=== PATIENT | female | born 1975 | race Two or more races ===

== ENCOUNTER 2023-07-26 11:11 | Emergency (ER) | payer OTHER ==
[~2023-07-26] VITALS: Ht 162.6 cm; Wt 61.2 kg
[2023-07-26] MEDS ORDERED: NORVASC5 MG PO (13:04)
[2023-07-26 14:27] LABS: PH,URINE 6.5 (5.0-8.0); URINE APPEARANCE Clear; URINE BILIRRUBIN Negative (NEGATIVE); URINE BLOOD Negative; URINE COLOR Yellow; URINE EPITHELIAL CELLS 2.6 uL (0.0-38.8); URINE GLUCOSE Negative (NEGATIVE); URINE LEUKOCYTE Trace; URINE NITRATE Negative; URINE PROTEIN Negative (NEGATIVE); URINE UROBILINOGEN 0.2 E.U./dl
[2023-07-26 14:38] LABS: HEMATOCRIT 41.9 % (36.0-45.00); HEMOGLOBIN 14.5 g/dL (12.0-15.00); MEAN CELL VOLUME 92.6 fL (80.00-100.00); MEAN CORPUSCULAR HGB CONC 34.5 g/dl (32.0-36.0); PLATELET COUNT 208 K/uL (150-450); RED BLOOD COUNT 4.53 M/uL (4.00-6.00); RED CELL DISTRIBUTION WIDTH 13.7 % (11.5-14.5)
[2023-07-26 15:01] LABS: URINE BACTERIA 1.2 uL (0.0-1933); URINE RBC 1.7 uL (0.0-20.8)
[2023-07-26 15:14] LABS: ALBUMIN 4.5 gm/dL (3.4-5.0); BILIRUBIN TOTAL 0.42 mg/dL (0.3-1.2); CALCIUM 10.1 mg/dL (8.5-10.1); CREATININE SERUM 0.77 mg/dL (0.55-1.02); GFR 79.67; GLOBULINA 3.9 G/DL (2.4-3.5); POTASSIUM 5.21 mEq/L (3.5-5.1); TOTAL PROTEIN 8.4 gm/dL (6.4-8.2)
[2023-07-26] MEDS ORDERED: MIRALAX510 GM PO (15:52)
== END 2023-07-26 16:06 | disposition home or self-care (01) ==
LOC: ER 11:12
PROVIDERS: General Practice
DX: K59.00 Constipation, unspecified (principal); R10.9 Unspecified abdominal pain; R10.2 Pelvic and perineal pain

== ENCOUNTER 2024-05-01 08:46 | Outpatient (CLI) | payer OTHER ==
[~2024-05-01 08:46] MED LIST: MIRALAX510 GM PO; NORVASC5 MG PO
== END 2024-05-01 08:48 | disposition home or self-care (01) ==
LOC: SONOGRAMA 08:46
PROVIDERS: ATTEND Pathology Anatomic Pathology & Clinical Pathology
DX: D34 Benign neoplasm of thyroid gland (principal); E07.89 Other specified disorders of thyroid; E04.1 Nontoxic single thyroid nodule

== ENCOUNTER 2024-06-30 04:40 | Day surgery (SDC) | payer OTHER ==
[2024-06-14 11:23] LABS: HEMATOCRIT 38.2 % (36.0-45.00); MEAN CELL VOLUME 92.9 fL (80.00-100.00); MEAN CORPUSCULAR HEMOGLOBIN 31.8 pg (27.00-32.0); MEAN CORPUSCULAR HGB CONC 34.2 g/dl (32.0-36.0); PLATELET COUNT 263 K/uL (150-450); RED BLOOD COUNT 4.11 M/uL (4.00-6.00); RED CELL DISTRIBUTION WIDTH 13.7 % (11.5-14.5)
[2024-06-14 11:34] LABS: PH,URINE 6.5 (5.0-8.0); URINE APPEARANCE Clear; URINE BILIRRUBIN Negative (NEGATIVE); URINE BLOOD Negative; URINE COLOR Yellow; URINE GLUCOSE Negative (NEGATIVE); URINE KETONE Negative (NEGATIVE); URINE LEUKOCYTE Trace; URINE NITRATE Negative; URINE PROTEIN Negative (NEGATIVE); URINE UROBILINOGEN 0.2 E.U./dl
[2024-06-14 11:38] LABS: URINE EPITHELIAL CELLS 1.4 uL (0.0-38.8); URINE RBC 16.2 uL (0.0-20.8); URINE WBC 7.4 uL (0.0-23.2)
[2024-06-14 11:46] LABS: INR 0.96; PARTIAL THROMBOPLASTIN TIME 23.8 SECONDS (22.0-34.0); PROTHROMBIN TIME 10.5 SECONDS (9.0-11.5)
[2024-06-14 12:07] LABS: ALBUMIN 4.4 gm/dL (3.4-5.0); BILIRUBIN TOTAL 0.53 mg/dL (0.3-1.2); CALCIUM 9.8 mg/dL (8.5-10.1); CREATININE SERUM 0.8 mg/dL (0.55-1.02); GFR 75.92; GLOBULINA 3.8 G/DL (2.4-3.5); POTASSIUM 4.26 mEq/L (3.5-5.1); TOTAL PROTEIN 8.2 gm/dL (6.4-8.2)
[2024-06-14 12:31] LABS: URINE BACTERIA 2.4 uL (0.0-1933)
[2024-06-30] MEDS ORDERED: CEFAZOLIN SODIUM 1,000 MG VIAL ONE (07:20)
[2024-06-30] MEDS ORDERED: DEXAMETHASONE SODIUM PHOSPHATE 4 MG/ML VIAL ONE ×2 (07:22→07:44)
[2024-06-30] MEDS ORDERED: MORPHINE SULFATE 4 MG/ML VIAL IV ONE ×2 (09:55→10:25)
== END 2024-06-30 11:05 | disposition home or self-care (01) ==
LOC: CIR.AMB 04:40
PROVIDERS: ATTEND Surgery
DX: E04.1 Nontoxic single thyroid nodule (principal); E07.89 Other specified disorders of thyroid

== ENCOUNTER 2024-07-11 01:02 | Emergency (ER) | payer OTHER ==
[~2024-07-11] VITALS: Ht 165.1 cm; Wt 65.8 kg
[2024-07-11] MEDS ORDERED: ACETAMINOPHEN 500 MG GEL..CAP PO ONE (01:47)
[2024-07-11] MEDS ORDERED: KETOROLAC TROMETHAMINE 60 MG VIAL IM STA (02:15)
[2024-07-11] MEDS ORDERED: 0.9 % SODIUM CHLORIDE 1,000 ML IV STA (02:15)
[2024-07-11] MEDS ORDERED: FAMOtidine 10 MG/ML (4ML VIAL) IV PUSH STA (02:16)
[2024-07-11] MEDS ORDERED: ONDANSETRON HCL 2 MG/ML VIAL IV STA (02:16)
[2024-07-11] MEDS ORDERED: KETOROLAC TROMETHAMINE 60 MG VIAL IM ONE (02:20)
[2024-07-11] MEDS ORDERED: ONDANSETRON HCL 2 MG/ML VIAL ONE (02:20)
[2024-07-11] MEDS ORDERED: FAMOTIDINE/PF 20 MG/2 ML VIAL ONE (02:20)
[2024-07-11 03:07] LABS: PH,URINE 5.5 (5.0-8.0); URINE APPEARANCE Clear; URINE BACTERIA 7.3 uL (0.0-1933); URINE BILIRRUBIN Negative (NEGATIVE); URINE BLOOD Negative; URINE COLOR Yellow; URINE EPITHELIAL CELLS 6.8 uL (0.0-38.8); URINE GLUCOSE Negative (NEGATIVE); URINE KETONE Trace (NEGATIVE); URINE LEUKOCYTE Trace; URINE NITRATE Negative; URINE PROTEIN Negative (NEGATIVE); URINE RBC 28.2 uL (0.0-20.8); URINE WBC 17.8 uL (0.0-23.2)
[2024-07-11 03:26] LABS: HEMATOCRIT 35.1 % (36.0-45.00); HEMOGLOBIN 12.4 g/dL (12.0-15.00); MEAN CELL VOLUME 89.7 fL (80.00-100.00); MEAN CORPUSCULAR HEMOGLOBIN 31.6 pg (27.00-32.0); MEAN CORPUSCULAR HGB CONC 35.2 g/dl (32.0-36.0); PLATELET COUNT 204 K/uL (150-450); RED BLOOD COUNT 3.92 M/uL (4.00-6.00); RED CELL DISTRIBUTION WIDTH 13.2 % (11.5-14.5)
[2024-07-11 03:29] LABS: URINE CAST 0.14 uL (0.0-1.40)
[2024-07-11 03:32] LABS: CALCIUM 8.9 mg/dL (8.5-10.1); CREATININE SERUM 0.83 mg/dL (0.55-1.02); GFR 72.77; POTASSIUM 3.93 mEq/L (3.5-5.1)
== END 2024-07-11 04:29 | disposition home or self-care (01) ==
LOC: ER 01:02
DX: U07.1 COVID-19 (principal); R50.9 Fever, unspecified; R53.81 Other malaise